=== PATIENT | male | born 1950 | race Caucasian/White ===

== ENCOUNTER 2022-12-28 00:07 | Day surgery (SDC) | payer MEDICARE, SELFPAY ==
[2022-12-28 06:31] VITALS: BP 127/76; PULSE 67; RESP 16; TEMP 36.1; O2SAT 98
[2022-12-28] MEDS: LACTATED RINGERS 1,000 ML 150 ML IV CONT (06:40)
--- NOTE | 2022-12-28 06:40 | WPDANESEPPF ---
Anes - Initial Pre Proc Eval Procedure: Operation Date: 12/28/22 07:30 Proposed Procedures p Colonoscopy - Srikanth Perdomo MD Date/Time: 12/28/22 06:40 Surgeon: Srikanth Perdomo MD Pre Op Diagnosis: positive cologuard Patient Data Age: 72 Gender: M Height: 1.8 m Weight: 97.1 kg Last Vital Signs Temp 36.1 C L 12/28/22 06:31 Pulse 67 12/28/22 06:31 Resp 16 12/28/22 06:31 BP 127/76 12/28/22 06:31 Pulse Ox 98 12/28/22 06:31 O2 Del Method Room Air 12/28/22 06:31 Allergies Allergy/AdvReac Type Severity Reaction Status Date / Time No Known Allergies Allergy Verified 12/28/22 06:29 Home Medications Medication Instructions Recorded Confirmed Type celecoxib 100 mg capsule 200 mg PO DAILY 12/14/22 12/28/22 History citalopram 20 mg tablet 20 mg PO DAILY 12/14/22 12/28/22 History fluticasone propionate 50 2 spray intranasal DAILY PRN 12/14/22 12/28/22 History mcg/actuation nasal Congestion spray,suspension lisinopril 5 mg tablet 5 mg PO DAILY 12/14/22 12/28/22 History simvastatin 80 mg tablet 80 mg PO DAILY 12/14/22 12/28/22 History Patient hx anesthesia problems: none Family hx anesthesia problems: none Results Review: All pre-operative results and documents have been reviewed as part of the pre-operative evaluation. COUNT INCLUDES THE [facility] Past Medical History Medical History (Updated 12/28/22 @ 06:40 by Quintin Royal MD) HTN (hypertension) Social History Social History Smoking status: Never smoker Alcohol intake: never Substance use: never Substance use type: does not use Living arrangements: with family Spiritual care concerns: No Anes - Eval Final PreProcedure Day of Procedure 12/28/22 06:40 Patient weight: overweight Heart: regular rate and rhythm Lungs: clear to auscultation Airway: Mallampati scale class II Neurological: alert and oriented Last oral intake: >/= 8 hours ASA classification: II Emergent: no Anesthetic plan: proceed Anesthesia type and monitoring: general GIVS and standard monitoring Results Review: All pre-operative results and documents have been reviewed as part of the pre-operative evaluation. Informed Consent: The patient's anesthetic plan and its attendant risks and benefits were discussed with the patient/family/POA. Questions were solicited and answers provided to the satisfaction of the patient/family/POA.
--- NOTE | 2022-12-28 07:24 | PM.HPGS ---
History of Present Illness History of Present Illness Consent: Risks, benefits, and alternatives have been discussed and questions answered. Patient agrees to proceed with procedure. Chief complaint: positive cologuard Narrative: Manuelito Juan is a 72 year old male Presents for screening colonoscopy. Recent Cologuard test was negative. Patient reports that his current weight appetite and bowel movements are normal. Patient denies abdominal pain. He has had no bleeding. Family history noncontributory. Review of Systems Review of Systems: Review of systems noncontributory. [facility] Past Medical History Medical History (Updated 12/28/22 @ 07:27 by Srikanth Perdomo MD) HTN (hypertension) Social History Social History Smoking status: Never smoker Alcohol intake: never Substance use: never Substance use type: does not use Living arrangements: with family Spiritual care concerns: No Meds Home Medications and Allergies Home Medications Medication Instructions Recorded Confirmed Type celecoxib 100 mg capsule 200 mg PO DAILY 12/14/22 12/28/22 History citalopram 20 mg tablet 20 mg PO DAILY 12/14/22 12/28/22 History fluticasone propionate 50 2 spray intranasal DAILY PRN 12/14/22 12/28/22 History mcg/actuation nasal Congestion spray,suspension lisinopril 5 mg tablet 5 mg PO DAILY 12/14/22 12/28/22 History simvastatin 80 mg tablet 80 mg PO DAILY 12/14/22 12/28/22 History Allergies Allergy/AdvReac Type Severity Reaction Status Date / Time No Known Allergies Allergy Verified 12/28/22 06:29 Vital Signs Vital Signs - 24 hr 12/28/22 06:31 Temperature 97.0 F L Pulse Rate 67 Respiratory Rate 16 Blood Pressure 127/76 Pulse Oximetry 98 Oxygen Delivery Room Air Exam Narrative: Physical exam reveals patient to be alert. Vital signs stable. HEENT exam is unremarkable. Patient is anicteric. Lungs are clear to auscultation and percussion. Heart is without murmur or extra sounds. Abdomen bowel sounds are present soft nontender with no organomegaly. Digital external rectal exam is normal. Assessment and Plan Assessment and plan (1) Positive colorectal cancer screening using Cologuard test: Code(s): R19.5 - Other fecal abnormalities Status: Acute Assessment and Plan: Patient presents for screening colonoscopy because of recent Cologuard test that was positive. Further recommendations may be given after endoscopy.
[2022-12-28 07:55] VITALS: BP 123/72; PULSE 58; RESP 18; O2SAT 99
[2022-12-28 08:05] VITALS: BP 114/64; PULSE 56; RESP 18; O2SAT 100
[2022-12-28 08:15] VITALS: BP 137/86; PULSE 58; RESP 18; O2SAT 100
== END 2022-12-28 08:26 | disposition home or self-care (01) ==
PROVIDERS: Visit Provider Internal Medicine Gastroenterology
PROC: 0DJD8ZZ Inspection of Lower Intestinal Tract, Via Natural or Artificial Opening Endoscopic (ICD-10-PCS; CPT 45378; principal; 2022-12-28 07:30)
DX: Z12.11 Encounter for screening for malignant neoplasm of colon (principal); K63.5 Polyp of colon; K57.30 Diverticulosis of large intestine without perforation or abscess without bleeding; K64.8 Other hemorrhoids; R19.5 Other fecal abnormalities; I10 Essential (primary) hypertension
CPT/HCPCS: 45385; 88305; J2704; J7120